=== PATIENT | female | born 1990 | race Two or more races ===

== ENCOUNTER 2016-10-07 00:02 | Emergency (ER) | payer OTHER ==
[~2016-10-07] VITALS: Ht 170.2 cm; Wt 84.8 kg
[2016-10-07] MEDS ORDERED: AZITHROMYCIN 250 MG TABLET PO ONE (01:00)
[2016-10-07] MEDS ORDERED: CEFTRIAXONE 500 MG VIAL IM ONE (01:00)
[2016-10-07 01:02] LABS: *BILIRUBIN,URIN NEGATIVE (NEGATIVE); *BLOOD, URINE NEGATIVE (NEGATIVE); *CLARITY,URINE CLEAR (CLEAR); *COLOR,URINE YELLOW (YELLOW); *KETONES,URINE NEGATIVE (NEGATIVE); *PROTEIN,URINE NEGATIVE (NEGATIVE); *UROBILINOGEN,URINE 0.2 E.U./dl (NORMAL); LEUKOCYTE ESTERASE ,URINE NEGATIVE (NEGATIVE); NITRITE, URINE NEGATIVE (NEGATIVE); UGLUCOSE NEGATIVE (NEGATIVE)
[2016-10-07 01:16] LABS: *URINE HCG, QUAL NEGATIVE (NEGATIVE); BACTERIA,URINE FEW /HPF (NONE SEEN); MUCUS,URINE MANY /LPF (0-FEW); RBC,URINE 0-3 /HPF (0-3); SQUAMOUS EPITHELIAL CELL,UR MANY /HPF (NONE SEEN); WBC,URINE 0-3 /HPF (0-3)
--- NOTE | 2016-10-07 01:28 | NUR ---
Pt given ACT injection, will monitor for any adverse reactions.
[2016-10-07] MEDS ORDERED: AZITHROMYCIN 250 MG TABLET ONE (01:32)
[2016-10-07] MEDS ORDERED: CEFTRIAXONE 500 MG VIAL ONE (01:33)
--- NOTE | 2016-10-07 02:08 | NUR ---
No adverse reactions noted from ABT. Pelvic exam completed. Pt stable for discharge per MD. Pt given ACI. Pt verbalized understanding of dc instructions. Pt ambulated out of er with steady gait.
[2016-10-07 02:09] VITALS: BP 122/79
== END 2016-10-07 02:10 | disposition home or self-care (01) ==
LOC: ER 00:09
DX: N76.0 Acute vaginitis (principal); F41.9 Anxiety disorder, unspecified; F32.9 Major depressive disorder, single episode, unspecified; F10.20 Alcohol dependence, uncomplicated; F12.10 Cannabis abuse, uncomplicated; F17.200 Nicotine dependence, unspecified, uncomplicated
CPT/HCPCS: 81001; 84703; 87210; 96372; 99284; A4663; J0696; Q0144